=== PATIENT | female | born 1970 | race Caucasian/White ===

== ENCOUNTER 2017-08-23 14:46 | Emergency (ER) | payer MEDICAID ==
[~2017-08-23 14:46] MED LIST: ACET500T68 PO; AZIT-18 PO; CYCL10TA29 PO; FURO20TA19 PO; IBUP-1671 PO; KET10 PO; NITR-105 PO; PRED-1 PO
[2017-08-23] MEDS ORDERED: LISI5TAB25 PO (14:58)
--- NOTE | 2017-08-23 14:58 | ER Report ---
History and Physical Time Seen By MD: 14:58 Hx. of Stated Complaint: PT REPORTS SEVERE R SIDE BACK/ABDOMEN PAIN STARTING YESTERDAY MORNING, JABBING IN WAVES, LIGHTHEADEDNESS, ON PERIOD FOR 2 WEEKS HPI/ROS CHIEF COMPLAINT: Right flank and back pain HISTORY OF PRESENT ILLNESS: 47-year-old female patient presents to emergency room with complaint of right flank and back pain. Patient states this been going on since yesterday morning. She states since then she's taking some ibuprofen for this with no improvement. She states that she's been having her period for the past 2 months and has not noticing blood in her urine is alert but all the time. She states she is having pain that she rates a "20/10". She states that there is nothing seems to make the pain better. She denies having any nausea, vomiting or diarrhea. Patient states she is able to him drinking normally. She denies having any difficulties with bowel movement or urination. REVIEW OF SYSTEMS: Respiratory: No cough, no dyspnea. Cardiovascular: No chest pain, no palpitations. Gastrointestinal: No vomiting, no abdominal pain. Musculoskeletal: As noted above Allergies: Coded Allergies: Penicillins (Verified Allergy, Intermediate, rash, 04/13/17) cefaclor (Verified Allergy, Intermediate, rash, 04/13/17) sulfamethoxazole (Verified Allergy, Intermediate, rash, 04/13/17) trimethoprim (Verified Allergy, Intermediate, rash, 04/13/17) Home Meds Active Scripts Ketorolac Tromethamine (KETOROLAC TROMETHAMINE) 10 Mg Tab, 10 MG PO Q6H, #20 TAB Prov:HANS SEAMAN CREPE MACHINE OPERATOR 08/23/17 Reported Medications Gabapentin (GABAPENTIN) 300 Mg Capsule, 300 MG PO TID, CAPSULE 08/23/17 Meloxicam (MELOXICAM) 7.5 Mg Tablet, 7.5 MG PO QDAY 08/23/17 Lisinopril (LISINOPRIL) 5 Mg Tablet, 5 MG PO QDAY, TAB 08/23/17 Past Medical/Surgical History Patient has a past medical history of hypertension, hyperlipidemia, frequent UTI , diabetes, hypothyroidism, meth abuse, alcohol use, psychiatric problems. Patient has surgical history of cholecystectomy, ablation, tubal ligation, bilateral trigger finger, back surgery. Reviewed Nurses Notes: Yes Hx Substance Use Disorder: No Hx Alcohol Use: Yes (rare) Constitutional Vital Sign - Last 24 Hours 08/23/17 08/23/17 08/23/17 08/23/17 14:46 14:52 14:53 15:00 Temp 98.2 Pulse ??? 95 Resp 18 B/P (MAP) 143/95 (111) 143/95 132/69 (90) Pulse Ox 96 O2 Delivery Room Air 08/23/17 08/23/17 08/23/17 08/23/17 15:01 15:16 15:30 15:31 Pulse 88 85 84 B/P (MAP) 132/71 (91) Pulse Ox 99 96 94 08/23/17 08/23/17 08/23/17 08/23/17 15:46 16:00 16:01 16:16 Pulse ? 81 B/P (MAP) 148/78 (101) Pulse Ox 98 08/23/17 08/23/17 08/23/17 08/23/17 16:21 16:26 16:30 16:31 Pulse 95 83 92 B/P (MAP) 136/82 (100) Pulse Ox 99 95 95 Intake and Output 08/23/17 08/23/17 08/24/17 15:00 23:00 07:00 Intake Total 1000 ml Output Total 25 ml Balance 975 ml Physical Exam General Appearance: The patient is alert, has no immediate need for airway protection and no current signs of toxicity. ENT: Tympanic membranes are pearly-walker, auditory canals are patent, mixed mucous membranes are moist. Respiratory: Chest is non tender, lungs are clear to auscultation. Cardiac: regular rate and rhythm Gastrointestinal: Abdomen is soft and non tender, no masses, bowel sounds normal. Patient had right-sided CVA tenderness. Musculoskeletal: Neck: Neck is supple and non tender. Extremities have full range of motion and are non tender. Skin: No rashes or lesions. DIFFERENTIAL DIAGNOSIS: After history and physical exam differential diagnosis was considered for flank pain including but not limited to musculoskeletal causes, kidney stone, pyelonephritis, shingles, and intra-abdominal causes such as diverticulitis and appendicitis. Medical Decision Making Data Points Result Diagram: 08/23/17 1512 08/23/17 1512 Laboratory Hematology Test 08/23/17 15:12 08/23/17 15:28 Red Blood Count 4.76 M/uL (4.17-5.56) Mean Corpuscular Volume 89.6 fL (80.0-96.0) Mean Corpuscular Hemoglobin 32.1 pg (26.0-33.0) Mean Corpuscular Hemoglobin Concent 35.8 g/dL (32.0-36.0) Red Cell Distribution Width 13.5 % (11.5-14.5) Mean Platelet Volume 8.7 fL (7.2-11.1) Neutrophils (%) (Auto) 54.3 % (39.4-72.5) Lymphocytes (%) (Auto) 33.8 % (17.6-49.6) Monocytes (%) (Auto) 8.5 % (4.1-12.4) Eosinophils (%) (Auto) 2.7 % (0.4-6.7) Basophils (%) (Auto) 0.7 % (0.3-1.4) Nucleated RBC Relative Count (auto) 0.0 /100WBC Neutrophils # (Auto) 3.8 K/uL (2.0-7.4) Lymphocytes # (Auto) 2.4 K/uL (1.3-3.6) Monocytes # (Auto) 0.6 K/uL (0.3-1.0) Eosinophils # (Auto) 0.2 K/uL (0.0-0.5) Basophils # (Auto) 0.0 K/uL (0.0-0.1) Nucleated RBC Absolute Count (auto) 0.00 K/uL Erythrocyte Sedimentation Rate 15 mm/HOUR (0-20) Sodium Level 135 mmol/L (137-145) Potassium Level 3.9 mmol/L (3.5-5.0) Chloride Level 99 mmol/L (98-107) Carbon Dioxide Level 24 mmol/L (22-31) Blood Urea Nitrogen 12 mg/dl (7-18) Creatinine 0.90 mg/dl (0.52-1.04) Glomerular Filtration Rate Calc > 60.0 Random Glucose 125 mg/dl (75-110) Calcium Level 9.2 mg/dl (8.4-10.2) Total Bilirubin 0.9 mg/dl (0.2-1.3) Aspartate Amino Transf (AST/SGOT) 20 U/L (0-35) Alanine Aminotransferase (ALT/SGPT) 30 U/L (0-56) Alkaline Phosphatase 88 U/L (0-126) C-Reactive Protein 0.9 mg/dl (<1.0) Total Protein 7.3 gm/dl (6.3-8.2) Albumin 3.8 g/dl (3.5-5.0) Amylase Level 67 U/L (0-110) Lipase 102 U/L (23-300) Urine Color Yellow Urine Clarity Clear Urine pH 5.0 pH (4.8-9.5) Urine Specific [place] 1.017 Urine Protein Negative mg/dL (NEGATIVE) Urine Glucose (UA) Negative mg/dL (NEGATIVE) Urine Ketones Negative mg/dL (NEGATIVE) Urine Blood Negative (NEGATIVE) Urine Nitrite Negative (NEGATIVE) Urine Bilirubin Negative (NEGATIVE) Urine Urobilinogen 0.2 mg/dL (0.2-1.9) Urine Leukocyte Esterase Negative (NEGATIVE) Urine RBC None /HPF (0-2/HPF) Urine WBC 1 /HPF (0-5/HPF) Urine Squamous Epithelial Cells Many /LPF (NONE-FEW) Urine Bacteria Negative /HPF (NONE-FEW) Urine Mucus Few /HPF (NONE-FEW) Chemistry Test 08/23/17 15:12 08/23/17 15:28 White Blood Count 7.0 k/uL (4.5-11.0) Red Blood Count 4.76 M/uL (4.17-5.56) Hemoglobin 15.3 g/dL (12.0-16.0) Hematocrit 42.7 % (34.0-47.0) Mean Corpuscular Volume 89.6 fL (80.0-96.0) Mean Corpuscular Hemoglobin 32.1 pg (26.0-33.0) Mean Corpuscular Hemoglobin Concent 35.8 g/dL (32.0-36.0) Red Cell Distribution Width 13.5 % (11.5-14.5) Platelet Count 258 K/uL (150-450) Mean Platelet Volume 8.7 fL (7.2-11.1) Neutrophils (%) (Auto) 54.3 % (39.4-72.5) Lymphocytes (%) (Auto) 33.8 % (17.6-49.6) Monocytes (%) (Auto) 8.5 % (4.1-12.4) Eosinophils (%) (Auto) 2.7 % (0.4-6.7) Basophils (%) (Auto) 0.7 % (0.3-1.4) Nucleated RBC Relative Count (auto) 0.0 /100WBC Neutrophils # (Auto) 3.8 K/uL (2.0-7.4) Lymphocytes # (Auto) 2.4 K/uL (1.3-3.6) Monocytes # (Auto) 0.6 K/uL (0.3-1.0) Eosinophils # (Auto) 0.2 K/uL (0.0-0.5) Basophils # (Auto) 0.0 K/uL (0.0-0.1) Nucleated RBC Absolute Count (auto) 0.00 K/uL Erythrocyte Sedimentation Rate 15 mm/HOUR (0-20) Glomerular Filtration Rate Calc > 60.0 Calcium Level 9.2 mg/dl (8.4-10.2) Total Bilirubin 0.9 mg/dl (0.2-1.3) Aspartate Amino Transf (AST/SGOT) 20 U/L (0-35) Alanine Aminotransferase (ALT/SGPT) 30 U/L (0-56) Alkaline Phosphatase 88 U/L (0-126) C-Reactive Protein 0.9 mg/dl (<1.0) Total Protein 7.3 gm/dl (6.3-8.2) Albumin 3.8 g/dl (3.5-5.0) Amylase Level 67 U/L (0-110) Lipase 102 U/L (23-300) Urine Color Yellow Urine Clarity Clear Urine pH 5.0 pH (4.8-9.5) Urine Specific [place] 1.017 Urine Protein Negative mg/dL (NEGATIVE) Urine Glucose (UA) Negative mg/dL (NEGATIVE) Urine Ketones Negative mg/dL (NEGATIVE) Urine Blood Negative (NEGATIVE) Urine Nitrite Negative (NEGATIVE) Urine Bilirubin Negative (NEGATIVE) Urine Urobilinogen 0.2 mg/dL (0.2-1.9) Urine Leukocyte Esterase Negative (NEGATIVE) Urine RBC None /HPF (0-2/HPF) Urine WBC 1 /HPF (0-5/HPF) Urine Squamous Epithelial Cells Many /LPF (NONE-FEW) Urine Bacteria Negative /HPF (NONE-FEW) Urine Mucus Few /HPF (NONE-FEW) Urinalysis Test 08/23/17 15:28 Urine Color Yellow Urine Clarity Clear Urine pH 5.0 pH (4.8-9.5) Urine Specific [place] 1.017 Urine Protein Negative mg/dL (NEGATIVE) Urine Glucose (UA) Negative mg/dL (NEGATIVE) Urine Ketones Negative mg/dL (NEGATIVE) Urine Blood Negative (NEGATIVE) Urine Nitrite Negative (NEGATIVE) Urine Bilirubin Negative (NEGATIVE) Urine Urobilinogen 0.2 mg/dL (0.2-1.9) Urine Leukocyte Esterase Negative (NEGATIVE) Urine RBC None /HPF (0-2/HPF) Urine WBC 1 /HPF (0-5/HPF) Urine Squamous Epithelial Cells Many /LPF (NONE-FEW) Urine Bacteria Negative /HPF (NONE-FEW) Urine Mucus Few /HPF (NONE-FEW) EKG/Imaging Imaging CT abdomen and pelvis with IV contrast Indication: Right flank pain. Comparison: None available. . Technique: Axial CT images were obtained through the abdomen and pelvis during injection of nonionic iodinated intravenous contrast. Reformatted coronal and sagittal images were also obtained. One of the following dose optimization techniques was utilized in the performance of this exam: Automated exposure control; adjustment of the mA and/ or kV according to the patient's size; or use of an iterative reconstruction technique. Specific details can be referenced in the facility's radiology CT exam operational policy. Contrast: 100 ml of Isovue-370 IV contrast. Findings: Lower lung sinha: Limited views lower lung field are unremarkable. Liver: No focal parenchymal abnormality of the liver. Biliary: Status post cholecystectomy. Biliary system is unremarkable postcholecystectomy. Pancreas: Normal appearance. Spleen: Normal appearance. Adrenal glands: Unremarkable. Kidneys / retroperitoneum: No evidence of nephrolithiasis or hydronephrosis. No focal normality. Bowel / peritoneum / mesenteries: There are a few diverticula seen along the descending sigmoid colon without pericolonic inflammation. Colon shows no other focal abnormality. The appendix is not definitely visualized. No secondary signs of appendicitis. Small bowel shows no focal normality or obstruction. Stomach is grossly normal. No free air, free fluid, fluid collections or areas of inflammation. Small umbilical hernia containing fat. Lymph node assessment: No pathologic adenopathy identified. Pelvic structures: Appear unremarkable. Vessels: Mild atherosclerotic calcifications seen throughout a nonaneurysmal abdominal aorta and branches. Musculoskeletal / Body wall: No acute or aggressive osseous abnormality. Mild degenerative changes spine. IMPRESSION: 1. No acute intra-abdominal abnormality Report Dictated By: Dyllan Tyler at 08/23/2017 4:11 PM Report E-Signed By: Dyllan Tyler at 08/23/2017 4:18 PM ED Course/Re-evaluation ED Course Patient was admitted to exam room, history and physical were obtained. Different diagnoses were considered. On examination patient had tenderness to the right flank, CVA tenderness. A CBC, CMP, urinalysis, ESR, CRP were done. Lab results were unremarkable. CT scan of abdomen and pelvis was done looking for possible kidney stones or pyelonephritis. The imaging results were negative as well. Patient did receive 50 mg of IV Toradol. I went in to discuss the results of the labs as well as the imaging studies patient was resting peacefully. I did inform her that the imaging as well as the lab results were negative. I believe that we are looking at a musculoskeletal injury. We will go ahead and give her a prescription for Toradol. She is to follow-up with her primary care provider in a week. Patient verbalized understanding and agreement with plan. Decision to Disposition Date: Aug 23, 2017 Decision to Disposition Time: 16:28 Depart Departure Latest Vital Signs Vital Signs Date Time Temp Pulse Resp B/P (MAP) Pulse Ox O2 Delivery O2 Flow Rate FiO2 08/23/17 16:31 92 95 08/23/17 16:30 136/82 (100) 08/23/17 14:53 98.2 18 Room Air Impression: Primary Impression: Back pain Condition: Improved Disposition: HOME OR SELF-CARE New Scripts Ketorolac Tromethamine (KETOROLAC TROMETHAMINE) 10 Mg Tab 10 MG PO Q6H, #20 TAB Prov: HANS SEAMAN 08/23/17 Patient Instructions: Back Pain (ED) Additional Instructions: Limit activity by pain. Ice the area that is sore. Take Tylenol in addition to the pain medication. No Aleve, Ibuprofen or Advil while taking the pain medication. Follow up with your primary care provider in the next week. Return to the ER if condition worsens. Problem Qualifiers Primary Impression: Back pain Back pain location: low back pain Chronicity: acute Back pain laterality: right Sciatica presence: without sciatica Qualified Codes: M54.5 - Low back pain HANS SEAMAN Aug 23, 2017 14:58
[2017-08-23] MEDS ORDERED: MELO-205 PO (14:59)
[2017-08-23] MEDS ORDERED: GABA-549 PO (15:00)
[2017-08-23] MEDS ORDERED: NS(*) 0.9% 1000 ML BAG 1,000 ML IV ONE (15:04)
[2017-08-23] MEDS ORDERED: KETOROLAC 15 MG/ML VIAL IVP ONE (15:05)
[2017-08-23] MEDS ORDERED: IOPAMIDOL 76% 100 ML INFUS BTL 100 ML ONE (15:25)
[2017-08-23] MEDS ORDERED: NS 0.9% 150 ML BAG 150 ML ONE (15:25)
[2017-08-23 15:28] LABS: PLATELET COUNT, AUTOMATED 258 K/uL (150-450)
--- NOTE | 2017-08-23 16:23 | RADIOLOGY IMAGING REPORT ---
FACILITY: [facility] [place] PATIENT NAME: Rochelle Arriaga : 1970 MR: [id number] V: [id number] EXAM DATE: ORDERING PHYSICIAN: HANS SEAMAN TECHNOLOGIST: Location: [facility] [place] Patient: Rochelle Arriaga : 1970 Visit/Account:[id number] Date of Sevice: 08/23/2017 CT abdomen and pelvis with IV contrast Indication: Right flank pain. Comparison: None available. . Technique: Axial CT images were obtained through the abdomen and pelvis during injection of nonioni c iodinated intravenous contrast. Reformatted coronal and sagittal images were also obtained. One of the following dose optimization techniques was utilized in the performance of this exam: Autom ated exposure control; adjustment of the mA and/or kV according to the patient's size; or use of an i terative reconstruction technique. Specific details can be referenced in the facility's radiology C T exam operational policy. Contrast: 100 ml of Isovue-370 IV contrast. Findings: Lower lung sinha: Limited views lower lung field are unremarkable. Liver: No focal parenchymal abnormality of the liver. Biliary: Status post cholecystectomy. Biliary system is unremarkable postcholecystectomy. Pancreas: Normal appearance. Spleen: Normal appearance. Adrenal glands: Unremarkable. Kidneys / retroperitoneum: No evidence of nephrolithiasis or hydronephrosis. No focal normality. Bowel / peritoneum / mesenteries: There are a few diverticula seen along the descending sigmoid colon without pericolonic inflammation. Colon shows no other focal abnormality. The appendix is not defini tely visualized. No secondary signs of appendicitis. Small bowel shows no focal normality or obstruct ion. Stomach is grossly normal. No free air, free fluid, fluid collections or areas of inflammation. Small umbilical hernia containin g fat. Lymph node assessment: No pathologic adenopathy identified. Pelvic structures: Appear unremarkable. Vessels: Mild atherosclerotic calcifications seen throughout a nonaneurysmal abdominal aorta and bran ches. Musculoskeletal / Body wall: No acute or aggressive osseous abnormality. Mild degenerative changes sp ine. IMPRESSION: 1. No acute intra-abdominal abnormality Report Dictated By: Dyllan Tyler at 08/23/2017 4:11 PM Report E-Signed By: Dyllan Tyler at 08/23/2017 4:18 PM WSN:[id number]
[2017-08-23] MEDS ORDERED: KET10 PO (16:27)
[2017-08-23 16:30] VITALS: BP 136/82
== END 2017-08-23 16:48 | disposition home or self-care (01) ==
LOC: ER 14:57
DX: M54.5 Low back pain (principal)
CPT/HCPCS: 74177; 81001; 82150; 83690; 85025; 85651; 86140; 96361; 96374; 99284; A4353; J1885; J7030; Q9967; 82040; 82247; 82310; 82374; 82435; 82565; 82947; 84075; 84132; 84155; 84295; 84450; 84460; 84520

== ENCOUNTER → 2018-01-08 | Outpatient (REF) ==
[~2018-01-08] MED LIST changes: +GABA-549 PO; +HYDR-4309 PO; +LISI5TAB25 PO; +MELO-205 PO; +PRED20TA6 PO
--- NOTE | 2018-01-08 13:15 | RADIOLOGY IMAGING REPORT ---
FACILITY: [facility] [place] PATIENT NAME: Rochelle Arriaga : 1970 MR: [id number] V: [id number] EXAM DATE: ORDERING PHYSICIAN: ROSALINDA CHAUDHARY TECHNOLOGIST: Location: [facility] Patient: Rochelle Arriaga : 1970 Visit/Account:[id number] Date of Sevice: 01/08/2018 Exam type: VENOUS DOPP LOW RIGHT EXTREMIT History: Right lower extremity pain Comparison: None. Findings: Right lower extremity veins were imaged including the right common femoral vein superficial femoral v ein popliteal vein posterior tibial vein peroneal vein greater saphenous vein revealing no evidence i ntraluminal thrombi the veins were compressible and demonstrated augmentation IMPRESSION: 1. No sonographic evidence DVT involving the right lower extremity veins Report Dictated By: Gina Crawford MD at 01/08/2018 1:09 PM Report E-Signed By: Gina Crawford MD at 01/08/2018 1:11 PM WSN:[email or web address]
== END ==
LOC: US 11:50
PROVIDERS: ATTEND Registered Nurse Psychiatric/Mental Health
DX: M79.604 Pain in right leg (principal)

== ENCOUNTER 2018-02-20 04:37 | Emergency (ER) | payer SELFPAY ==
[~2018-02-20 04:37] MED LIST changes: -LAMO25TA64 PO
--- NOTE | 2018-02-20 04:49 | ER Report ---
History and Physical Time Seen By MD: 04:49 Hx. of Stated Complaint: 20/10 right pain that has been going on for 3 days; patient states that she "has been out of it for 3 days" HPI/ROS CHIEF COMPLAINT: Right hip pain HISTORY OF PRESENT ILLNESS: This is a 47-year-old female. She has severe right hip/sciatica pain. She states for the last 3 days she will take a Tylenol and then go to sleep for several hours and get up and take another Tylenol. Today she couldn't get out of bed and has severe pain so called the ambulance. She says her pain is 20 on a 1-10 scale. She has a history of degenerative disc disease and follows up at the [facility]. Supposedly she is getting an MRI next month. She has a history of drug abuse as well. She does have some prednisone at home but has not used this. Also has a pill bottle for hydrocodone and has not used any of this as well. Allergies: Coded Allergies: Penicillins (Verified Allergy, Intermediate, rash, 02/20/18) cefaclor (Verified Allergy, Intermediate, rash, 02/20/18) sulfamethoxazole (Verified Allergy, Intermediate, rash, 02/20/18) trimethoprim (Verified Allergy, Intermediate, rash, 02/20/18) Home Meds Active Scripts Ketorolac Tromethamine (KETOROLAC TROMETHAMINE) 10 Mg Tab, 10 MG PO Q6H PRN for PAIN, #12 TAB 0 Refills Prov:NORMA FOREMAN MD 02/20/18 Cyclobenzaprine Hcl (CYCLOBENZAPRINE HCL) 10 Mg Tablet, 10 MG PO Q8H PRN for MUSCLE SPASMS, #20 TAB 0 Refills Prov:NORMA FOREMAN MD 02/20/18 Hydrocodone Bit/Acetaminophen (NORCO 5-325 TABLET) 1 Each Tablet, 1 EACH PO Q4H PRN for PAIN, #10 TAB Prov:CODI JOHNSON DO 01/04/18 Prednisone (PREDNISONE) 20 Mg Tablet, 20 MG PO QDAY for sciatic inflammation, #12 2. 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 She is hollering that she can't move her leg while I am watching her move it. She refuses to lay on her back because he says it hurts too much. Neuro: Normal sensation throughout the legs. Negative straight leg raise, she has pain no matter what position she is in does not change she says. Musculoskeletal: Appears to have normal motor function although with pain. No deformities or swelling noted. Skin: No rashes. No warmth or redness. Cardiovascular: Normal pulses in the foot and normal cap refill. Medical Decision Making Data Points Result Diagram: 02/20/18 0449 02/20/18 0449 Laboratory Hematology Test 02/20/18 04:49 02/20/18 05:11 Red Blood Count 4.91 M/uL (4.17-5.56) Mean Corpuscular Volume 90.9 fL (80.0-96.0) Mean Corpuscular Hemoglobin 31.8 pg (26.0-33.0) Mean Corpuscular Hemoglobin Concent 35.0 g/dL (32.0-36.0) Red Cell Distribution Width 13.5 % (11.5-14.5) Mean Platelet Volume 8.9 fL (7.2-11.1) Neutrophils (%) (Auto) 52.6 % (39.4-72.5) Lymphocytes (%) (Auto) 35.2 % (17.6-49.6) Monocytes (%) (Auto) 8.2 % (4.1-12.4) Eosinophils (%) (Auto) 3.0 % (0.4-6.7) Basophils (%) (Auto) 1.0 % (0.3-1.4) Nucleated RBC Relative Count (auto) 0.1 /100WBC Neutrophils # (Auto) 3.2 K/uL (2.0-7.4) Lymphocytes # (Auto) 2.2 K/uL (1.3-3.6) Monocytes # (Auto) 0.5 K/uL (0.3-1.0) Eosinophils # (Auto) 0.2 K/uL (0.0-0.5) Basophils # (Auto) 0.1 K/uL (0.0-0.1) Nucleated RBC Absolute Count (auto) 0.01 K/uL Erythrocyte Sedimentation Rate 16 mm/HOUR (0-20) Sodium Level 136 mmol/L (137-145) Potassium Level 4.4 mmol/L (3.5-5.0) Chloride Level 103 mmol/L (98-107) Carbon Dioxide Level 22 mmol/L (22-31) Blood Urea Nitrogen 20 mg/dl (7-18) Creatinine 0.90 mg/dl (0.52-1.04) Glomerular Filtration Rate Calc > 60.0 Random Glucose 139 mg/dl (75-110) Calcium Level 9.2 mg/dl (8.4-10.2) Total Bilirubin 1.4 mg/dl (0.2-1.3) Aspartate Amino Transf (AST/SGOT) 26 U/L (0-35) Alanine Aminotransferase (ALT/SGPT) 35 U/L (0-56) Alkaline Phosphatase 76 U/L (0-126) C-Reactive Protein 0.7 mg/dl (<1.0) Total Protein 7.3 g/dl (6.3-8.2) Albumin 4.0 g/dl (3.5-5.0) Urine Color Yellow Urine Clarity Slightly-cloudy Urine pH 5.0 pH (4.8-9.5) Urine Specific [place] 1.023 Urine Protein 30 mg/dL (NEGATIVE) Urine Glucose (UA) Negative mg/dL (NEGATIVE) Urine Ketones Negative mg/dL (NEGATIVE) Urine Blood Large (NEGATIVE) Urine Nitrite Negative (NEGATIVE) Urine Bilirubin Negative (NEGATIVE) Urine Urobilinogen Negative mg/dL (0.2-1.9) Urine Leukocyte Esterase Trace (NEGATIVE) Urine RBC 160 /HPF (0-2/HPF) Urine WBC 11 /HPF (0-5/HPF) Urine Squamous Epithelial Cells Many /LPF (NONE-FEW) Urine Bacteria Negative /HPF (NONE-FEW) Urine Mucus Few /HPF (NONE-FEW) Urine Opiates Screen Negative Urine Barbiturates Screen Negative Ur Tricyclic Antidepressants Screen Negative Urine Phencyclidine Screen Negative Urine Amphetamines Screen Positive Urine Benzodiazepines Screen Negative Urine Cocaine Screen Negative Urine Cannabinoids Screen Negative Chemistry Test 02/20/18 04:49 02/20/18 05:11 White Blood Count 6.2 k/uL (4.5-11.0) Red Blood Count 4.91 M/uL (4.17-5.56) Hemoglobin 15.6 g/dL (12.0-16.0) Hematocrit 44.6 % (34.0-47.0) Mean Corpuscular Volume 90.9 fL (80.0-96.0) Mean Corpuscular Hemoglobin 31.8 pg (26.0-33.0) Mean Corpuscular Hemoglobin Concent 35.0 g/dL (32.0-36.0) Red Cell Distribution Width 13.5 % (11.5-14.5) Platelet Count 283 K/uL (150-450) Mean Platelet Volume 8.9 fL (7.2-11.1) Neutrophils (%) (Auto) 52.6 % (39.4-72.5) Lymphocytes (%) (Auto) 35.2 % (17.6-49.6) Monocytes (%) (Auto) 8.2 % (4.1-12.4) Eosinophils (%) (Auto) 3.0 % (0.4-6.7) Basophils (%) (Auto) 1.0 % (0.3-1.4) Nucleated RBC Relative Count (auto) 0.1 /100WBC Neutrophils # (Auto) 3.2 K/uL (2.0-7.4) Lymphocytes # (Auto) 2.2 K/uL (1.3-3.6) Monocytes # (Auto) 0.5 K/uL (0.3-1.0) Eosinophils # (Auto) 0.2 K/uL (0.0-0.5) Basophils # (Auto) 0.1 K/uL (0.0-0.1) Nucleated RBC Absolute Count (auto) 0.01 K/uL Erythrocyte Sedimentation Rate 16 mm/HOUR (0-20) Glomerular Filtration Rate Calc > 60.0 Calcium Level 9.2 mg/dl (8.4-10.2) Total Bilirubin 1.4 mg/dl (0.2-1.3) Aspartate Amino Transf (AST/SGOT) 26 U/L (0-35) Alanine Aminotransferase (ALT/SGPT) 35 U/L (0-56) Alkaline Phosphatase 76 U/L (0-126) C-Reactive Protein 0.7 mg/dl (<1.0) Total Protein 7.3 g/dl (6.3-8.2) Albumin 4.0 g/dl (3.5-5.0) Urine Color Yellow Urine Clarity Slightly-cloudy Urine pH 5.0 pH (4.8-9.5) Urine Specific [place] 1.023 Urine Protein 30 mg/dL (NEGATIVE) Urine Glucose (UA) Negative mg/dL (NEGATIVE) Urine Ketones Negative mg/dL (NEGATIVE) Urine Blood Large (NEGATIVE) Urine Nitrite Negative (NEGATIVE) Urine Bilirubin Negative (NEGATIVE) Urine Urobilinogen Negative mg/dL (0.2-1.9) Urine Leukocyte Esterase Trace (NEGATIVE) Urine RBC 160 /HPF (0-2/HPF) Urine WBC 11 /HPF (0-5/HPF) Urine Squamous Epithelial Cells Many /LPF (NONE-FEW) Urine Bacteria Negative /HPF (NONE-FEW) Urine Mucus Few /HPF (NONE-FEW) Urine Opiates Screen Negative Urine Barbiturates Screen Negative Ur Tricyclic Antidepressants Screen Negative Urine Phencyclidine Screen Negative Urine Amphetamines Screen Positive Urine Benzodiazepines Screen Negative Urine Cocaine Screen Negative Urine Cannabinoids Screen Negative Toxicology Test 02/20/18 05:11 Urine Opiates Screen Negative Urine Barbiturates Screen Negative Ur Tricyclic Antidepressants Screen Negative Urine Phencyclidine Screen Negative Urine Amphetamines Screen Positive Urine Benzodiazepines Screen Negative Urine Cocaine Screen Negative Urine Cannabinoids Screen Negative Urinalysis Test 02/20/18 05:11 Urine Color Yellow Urine Clarity Slightly-cloudy Urine pH 5.0 pH (4.8-9.5) Urine Specific [place] 1.023 Urine Protein 30 mg/dL (NEGATIVE) Urine Glucose (UA) Negative mg/dL (NEGATIVE) Urine Ketones Negative mg/dL (NEGATIVE) Urine Blood Large (NEGATIVE) Urine Nitrite Negative (NEGATIVE) Urine Bilirubin Negative (NEGATIVE) Urine Urobilinogen Negative mg/dL (0.2-1.9) Urine Leukocyte Esterase Trace (NEGATIVE) Urine RBC 160 /HPF (0-2/HPF) Urine WBC 11 /HPF (0-5/HPF) Urine Squamous Epithelial Cells Many /LPF (NONE-FEW) Urine Bacteria Negative /HPF (NONE-FEW) Urine Mucus Few /HPF (NONE-FEW) EKG/Imaging Imaging LUMBAR SPINE: Indication: Low back pain. Technique: Frontal and lateral views were obtained. Comparison: 04/03/2017 Findings: There is no evidence of fracture, subluxation, or compression deformity. There is stable mild degenerative disc space narrowing and marginal osteophyte formation. There is normal mineralization. The paraspinal soft tissues appear unchanged. IMPRESSION: No acute deformity or significant change. Report Dictated By: Bryon Ordaz MD at 02/20/2018 5:53 AM HIP: Indication: Pain. Technique: Two views were obtained. Comparison: None. Findings: There is no evidence of fracture, dislocation, or other acute deformity. No joint space narrowing, erosion, or osteophyte formation is noted. There is uniform mineralization of the skeletal structures. There is no evidence of soft tissue deformity or calcification. IMPRESSION: Negative right hip. Report Dictated By: Bryon Ordaz MD at 02/20/2018 6:00 AM ED Course/Re-evaluation ED Course Laboratory studies essentially unremarkable with normal sedimentation rate and CRP. She did have a positive urine drug screen for methamphetamines. I did talk to her about this. I think that part of her problem is that she is abusing methamphetamine and then laying around causing worsening of her sciatica pain. Talked about stopping the drug use. I gave her Norflex and Toradol IV here in the ER and she will continue these and oral form outpatient as well. She will follow up with [facility] as planned. Decision to Disposition Date: Feb 20, 2018 Decision to Disposition Time: 05:59 Depart Departure Latest Vital Signs Vital Signs Date Time Temp Pulse Resp B/P (MAP) Pulse Ox O2 Delivery O2 Flow Rate FiO2 02/20/18 04:39 98.3 78 17 137/73 94 Room Air Impression: Primary Impression: Right sided sciatica Condition: Improved Disposition: HOME OR SELF-CARE New Scripts Ketorolac Tromethamine (KETOROLAC TROMETHAMINE) 10 Mg Tab 10 MG PO Q6H PRN for PAIN, #12 TAB 0 Refills Prov: NORMA FOREMAN MD 02/20/18 Cyclobenzaprine Hcl (CYCLOBENZAPRINE HCL) 10 Mg Tablet 10 MG PO Q8H PRN for MUSCLE SPASMS, #20 TAB 0 Refills Prov: NORMA FOREMAN MD 02/20/18 Patient Instructions: Sciatica (ED) Additional Instructions: You need to start moving, including stretching and walking. Use a hot rice pack to apply heat. Follow-up with the [facility]. Stop using methamphetamines. Take Flexeril 10mg, one every 8 hours as needed for spasm and pain. Take Toradol 10mg every 6 hours for the next 3 days. Take this with food. Drink extra water. After the 3 days of Toradol, you can switch to Ibuprofen. It is important that you do not take the medicines and then just lay around and sleep. This will not get better if you are not getting up and moving around. It will be painful at first, but should improve as you are moving more. NORMA FOREMAN MD Feb 20, 2018 04:49
[2018-02-20] MEDS ORDERED: KETOROLAC 30 MG/ML VIAL IVP ONE (05:05)
[2018-02-20] MEDS ORDERED: ORPHENADRINE 60MG/2ML INJ IVP ONE (05:05)
[2018-02-20 05:32] LABS: PLATELET COUNT, AUTOMATED 283 K/uL (150-450)
[2018-02-20 05:36] VITALS: BP 114/60
[2018-02-20] MEDS ORDERED: KET10 PO (06:02)
[2018-02-20] MEDS ORDERED: CYCL10TA29 PO (06:02)
--- NOTE | 2018-02-20 06:04 | RADIOLOGY IMAGING REPORT ---
FACILITY: [facility] [place] PATIENT NAME: Rochelle Arriaag : 1970 MR: [id number] V: [id number] EXAM DATE: ORDERING PHYSICIAN: NORMA FOREMAN TECHNOLOGIST: Location: [facility] Patient: Rochelle Arriaga : 1970 Visit/Account:[id number] Date of Sevice: 02/20/2018 LUMBAR SPINE: Indication: Low back pain. Technique: Frontal and lateral views were obtained. Comparison: 04/03/2017 Findings: There is no evidence of fracture, subluxation, or compression deformity. There is stable mi ld degenerative disc space narrowing and marginal osteophyte formation. There is normal mineralizatio n. The paraspinal soft tissues appear unchanged. IMPRESSION: No acute deformity or significant change. Report Dictated By: Bryon Ordaz MD at 02/20/2018 5:53 AM Report E-Signed By: Bryon Ordaz MD at 02/20/2018 6:00 AM WSN:[id number]
[2018-02-20] MEDS ORDERED: CYCLOBENZAPRINE HCL 10 MG TH PO ONE (06:05)
[2018-02-20] MEDS ORDERED: KETOROLAC TROM 10 MG TAB TH PO ONE (06:05)
--- NOTE | 2018-02-20 06:05 | RADIOLOGY IMAGING REPORT ---
FACILITY: [facility] PATIENT NAME: Rochelle Arriaga : 1970 MR: [id number] V: [id number] EXAM DATE: ORDERING PHYSICIAN: NORMA FOREMAN TECHNOLOGIST: Location: [facility] Patient: Rochelle Arriaga : 1970 Visit/Account:[id number] Date of Sevice: 02/20/2018 HIP: Indication: Pain. Technique: Two views were obtained. Comparison: None. Findings: There is no evidence of fracture, dislocation, or other acute deformity. No joint space galdino rowing, erosion, or osteophyte formation is noted. There is uniform mineralization of the skeletal st ructures. There is no evidence of soft tissue deformity or calcification. IMPRESSION: Negative right hip. Report Dictated By: Bryon Ordaz MD at 02/20/2018 6:00 AM Report E-Signed By: Bryon Ordaz MD at 02/20/2018 6:01 AM WSN:[id number]
[2018-02-20] MEDS ORDERED: LAMO25TA64 PO (18:17)
== END 2018-02-20 07:32 | disposition home or self-care (01) ==
LOC: ER 04:46
DX: M54.31 Sciatica, right side (principal); F15.90 Other stimulant use, unspecified, uncomplicated
CPT/HCPCS: 72100; 73502; 80305; 81001; 85025; 85651; 86140; 87088; 96374; 96375; 99284; A4353; J1885; J2360; 82040; 82247; 82310; 82374; 82435; 82565; 82947; 84075; 84132; 84155; 84295; 84450; 84460; 84520

== ENCOUNTER 2018-02-20 18:07 | Emergency (ER) | payer SELFPAY ==
--- NOTE | 2018-02-20 18:12 | ER Report ---
History and Physical Time Seen By : 18:12 HPI/ROS CHIEF COMPLAINT: Right sciatic pain HISTORY OF PRESENT ILLNESS: 47-year-old female returns complaining of right sciatic nerve pain. She was seen 2 months ago by myself. She was given a prednisone taper and a few hydrocodone for pain relief as well as muscle relaxants. She was advised to follow-up with primary care. She states she went to the [facility] and has an MRI scheduled next Friday. She was seen in the ER in the early a.m. hours this morning around 5 AM. She had a drug tox screen which positive for amphetamines suggesting substance abuse. Dr. santacruz discharged her with Flexeril and ketorolac for pain relief. Patient states she took the tree packs of medication and her pain has returned. She did not fill the prescriptions. Patient admitted during her last ER visit, that she had some hydrocodone left over at home. Patient notes no incontinence of stool or urine. She notes no fever or chills. Urinalysis was performed of the earlier ER visit, which is unremarkable for infection. REVIEW OF SYSTEMS: Respiratory: No cough, no dyspnea. Cardiovascular: No chest pain, no palpitations. Gastrointestinal: No vomiting, no abdominal pain. Musculoskeletal: As above Allergies: Coded Allergies: Penicillins (Verified Allergy, Intermediate, rash, 02/20/18) cefaclor (Verified Allergy, Intermediate, rash, 02/20/18) sulfamethoxazole (Verified Allergy, Intermediate, rash, 02/20/18) trimethoprim (Verified Allergy, Intermediate, rash, 02/20/18) Home Meds Active Scripts Ketorolac Tromethamine (KETOROLAC TROMETHAMINE) 10 Mg Tab, 10 MG PO Q6H PRN for PAIN, #12 TAB 0 Refills Prov:NORMA FOREMAN MD 02/20/18 Cyclobenzaprine Hcl (CYCLOBENZAPRINE HCL) 10 Mg Tablet, 10 MG PO Q8H PRN for MUSCLE SPASMS, #20 TAB 0 Refills Prov:NORMA FOREMAN MD 02/20/18 Hydrocodone Bit/Acetaminophen (NORCO 5-325 TABLET) 1 Each Tablet, 1 EACH PO Q4H PRN for PAIN, #10 TAB Prov:CODI JOHNSON DO 01/04/18 Prednisone (PREDNISONE) 20 Mg Tablet, 20 MG PO QDAY for sciatic inflammation, #12 2. 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 Vital signs stable, afebrile, mild distress Eyes: Pupils equal and round no injection. Respiratory: Chest is non tender, lungs are clear to auscultation. Cardiac: regular rate and rhythm Gastrointestinal: Abdomen is soft and non tender, no masses, bowel sounds normal. Musculoskeletal: Neck: Neck is supple and non tender. Back: There is tenderness over the course of the sciatic nerve. There is negative straight leg raise bilaterally. Lower extremities are neurovascularly intact. Extremities have full range of motion and are non tender. Skin: No rashes or lesions. DIFFERENTIAL DIAGNOSIS: After history and physical exam differential diagnosis was considered for back pain including but not limited to muscular pain, herniated disc, spine fracture, intra-abdominal causes , sciatica and urinary tract infection. Medical Decision Making ED Course/Re-evaluation ED Course Patient was admitted to an examination room. H&P was done. The differential diagnosis was considered. On clinical examination. Patient has extreme tenderness over her right sciatic nerve. She claims she has no improvement of h er pain. She was noted to be positive on her tox screen for amphetamines early this morning at 5 AM. She was discharged home on Flexeril and ketorolac. Patient returned turned stating her pain is unimproved with those medications. Since patient has a history of substance abuse, we're reluctant to provide any opiate pain relievers for her. Patient's offered the option of a sciatic nerve block with Marcaine. She agrees to proceed. With sterile technique. The most tender spot along the sciatic nerve was found. A #27-gauge 1-1/4 inch needle was inserted and approximately 10 mL of Marcaine 0.5% was infiltrated in a fan shaped distribution proximal to the site of pain where the nerve is most tender. She tolerated the procedure well. Patient is discharged home and advised to continue with the treatment plan as provided by Dr. Mijares. She is advised to follow-up with the [facility] as planned. Decision to Disposition Date: Feb 20, 2018 Decision to Disposition Time: 18:34 Depart Departure Latest Vital Signs Vital Signs Date Time Temp Pulse Resp B/P (MAP) Pulse Ox O2 Delivery O2 Flow Rate FiO2 02/20/18 19:11 84 18 140/83 (102) 94 Room Air 02/20/18 18:17 98.1 Impression: Primary Impression: Right sided sciatica Additional Impression: Back pain Condition: Stable Disposition: HOME OR SELF-CARE Patient Instructions: Sciatica (ED) Additional Instructions: Alternate ibuprofen and Tylenol to control your pain Apply heating pad to the affected area Follow-up with your primary care doctor for further evaluation next week Problem Qualifiers Additional Impression: Back pain Back pain location: low back pain Chronicity: chronic Back pain laterality: right Sciatica presence: with sciatica Sciatica laterality: sciatica of right side Qualified Codes: M54.41 - Lumbago with sciatica, right side; G89.29 - Other chronic pain CODI JOHNSON DO Feb 20, 2018 18:12
[2018-02-20] MEDS ORDERED: LAMO25TA64 PO (18:17)
[2018-02-20 19:11] VITALS: BP 140/83
== END 2018-02-20 19:13 | disposition home or self-care (01) ==
LOC: ER 18:12
DX: M54.31 Sciatica, right side (principal)
CPT/HCPCS: 99283

== ENCOUNTER → 2018-02-20 | Outpatient (CLI) | payer SELFPAY ==
[~2018-02-20] MED LIST changes: -HYDR-4309 PO; +HYDR-653 PO; +LAMO25TA64 PO
== END ==
LOC: AMB 04:08
PROVIDERS: ATTEND Nurse Practitioner
DX: M25.551 Pain in right hip (principal)
CPT/HCPCS: A0425; A0427

== ENCOUNTER → 2018-02-26 | Outpatient (REF) ==
[~2018-02-26] MED LIST changes: +GADOBENATE 529MG/1ML 15ML VIAL IVP ONE; +LAMO25TA64 PO
--- NOTE | 2018-02-26 10:57 | RADIOLOGY IMAGING REPORT ---
[place] [facility] [place] NAME: Rochelle Arriaga : 1970 MR: [id number] V: [id number] EXAM DATE: ORDERING PHYSICIAN: RENO ARIAS TECHNOLOGIST: Location: [facility] Patient: Rochelle Arriaga : 1970 Visit/Account:[id number] Date of Sevice: 02/26/2018 Lumbar spine Indication: Chronic low back pain. History of L5-S1 discectomy. Comparison: February 20, 2018. FINDINGS: 5 views of the lumbar spine were obtained. There are 5 lumbar type vertebral bodies. There is no acute osseous or acute alignment abnormality. Minimal to 3 mm anterolisthesis of L3 on L4 without definitive movement between flexion and extension views. No additional spondylolisthesis identified. The vertebral body heights appear well-maintained. Overall mild multilevel degenerative disc disease and mild/moderate facet arthropathy. Mild S-shaped sclerotic curvature of the thoracal lumbar spine.. Mild/moderate atherosclerosis within the abdominal aorta. IMPRESSION: 1. No acute osseous or acute alignment abnormality of the lumbar spine. 2. Grade 1 anterolisthesis of L3 on L4 without definitive movement between flexion and extension vie ws. 3. Mild/moderate degenerative changes within the lumbar spine. Report Dictated By: Rios Medina MD at 02/26/2018 10:49 AM Report E-Signed By: Rios Medina MD at 02/26/2018 10:53 AM WSN:[email or web address]
--- NOTE | 2018-02-26 13:43 | RADIOLOGY IMAGING REPORT ---
FACILITY: [facility] [place] PATIENT NAME: Rochelle Arriaga : 1970 MR: [id number] V: [id number] EXAM DATE: ORDERING PHYSICIAN: RENO ARIAS TECHNOLOGIST: Location: [facility] [place] Patient: Rochelle Arriaga : 1970 Visit/Account:[id number] Date of Sevice: 02/26/2018 EXAMINATION: MRI Lumbar spine without and with intravenous contrast HISTORY: Chronic low back pain. COMPARISON: Lumbar spine radiographs from same date. TECHNIQUE: Multi-planar, multi-sequence lumbar spine MRI was performed before and after IV contrast. CONTRAST: 15 mL of IV MultiHance FINDINGS: Alignment: Mild reverse S-shaped curvature of the thoracolumbar spine. Vertebral marrow signal: Mild discogenic fatty marrow changes at a few levels. Distal thoracic cord: Negative. Conus: negative, terminates at L1 Cauda equina: Negative. Paravertebral soft tissues: Negative. Visualized abdominal and pelvic structures: Negative. Enhancement pattern: Enhancing granulation tissue in the right epidural space at L5-S1. Disc Spaces: Lower thoracic spine: Mild degenerative changes. L1-2: Negative. L2-3: Circumferential disc bulge and facet hypertrophy. No significant spinal canal stenosis. Mild right and moderate left neural foraminal stenosis. L3-4: Circumferential disc bulge and facet hypertrophy. No significant spinal canal stenosis. Mild right and moderate left neural foraminal stenosis. L4-5: Circumferential disc bulge and facet hypertrophy. Moderate bilateral lateral recess stenosis. Mild central spinal canal stenosis. Mild to moderate bilateral neural foraminal stenosis. L5-S1: Right hemilaminectomy. Right lateral epidural granulation tissue surrounding the right S1 ner ve root. Small residual/recurrent disc protrusion in this region (series 9, image 7). Circumferenti al disc bulge and facet hypertrophy. Moderate left lateral recess stenosis. Moderate left and sever e right neural foraminal stenosis. IMPRESSION: 1. Multilevel degenerative disc disease and facet hypertrophy with mild reverse S-shaped thoracolumb ar curvature. 2. Right hemilaminectomy at L5-S1 with right lateral epidural granulation tissue surrounding the rig ht S1 nerve root. There is also a small residual/recurrent disc protrusion in the same region (serie s 9, image 7). Report Dictated By: Salvador Hernandez MD at 02/26/2018 1:29 PM Report E-Signed By: Salvador Hernandez MD at 02/26/2018 1:39 PM WSN:[id number]
== END ==
LOC: EDSTATUS 02:26 → MRI 02:27
PROVIDERS: ATTEND Orthopaedic Surgery Orthopaedic Surgery of the Spine
DX: M51.36 Other intervertebral disc degeneration, lumbar region (principal); M53.86 Other specified dorsopathies, lumbar region
CPT/HCPCS: 72120; 72158; A9577

== ENCOUNTER 2018-03-11 15:03 | Emergency (ER) | payer SELFPAY ==
[~2018-03-11 15:03] MED LIST changes: -GADOBENATE 529MG/1ML 15ML VIAL IVP ONE
[2018-03-11 15:13] VITALS: BP 154/84
--- NOTE | 2018-03-11 15:13 | ER Report ---
History and Physical Time Seen By MD: 15:13 HPI/ROS CHIEF COMPLAINT: Right leg pain HISTORY OF PRESENT ILLNESS: 47-year-old female patient presents to emergency room with complaint of right leg pain. Patient states that she's been having this pain for the past month. She states that she is not had any recent injury. She states that the pain is significant. She denies any loss of bowel or bladder control, she denies any saddle paresthesia. She states the pain has gotten the point wears going all the way down to her foot and she's concerned about that. She states that she has had an MRI as well as an x-ray done. She was told last night at the [facility] that they didn't find anything wrong with it. She states that she is concerned about the pain. REVIEW OF SYSTEMS: Respiratory: No cough, no dyspnea. Cardiovascular: No chest pain, no palpitations. Gastrointestinal: No vomiting, no abdominal pain. Musculoskeletal: As noted above Allergies: Coded Allergies: Penicillins (Verified Allergy, Intermediate, rash, 02/20/18) cefaclor (Verified Allergy, Intermediate, rash, 02/20/18) sulfamethoxazole (Verified Allergy, Intermediate, rash, 02/20/18) trimethoprim (Verified Allergy, Intermediate, rash, 02/20/18) Home Meds Active Scripts Ketorolac Tromethamine (KETOROLAC TROMETHAMINE) 10 Mg Tab, 10 MG PO Q6H, #20 TAB Prov:HANS SEAMAN [facility] 03/11/18 Ketorolac Tromethamine (KETOROLAC TROMETHAMINE) 10 Mg Tab, 10 MG PO Q6H PRN for PAIN, #12 TAB 0 Refills Prov:NORMA FOREMAN MD 02/20/18 Cyclobenzaprine Hcl (CYCLOBENZAPRINE HCL) 10 Mg Tablet, 10 MG PO Q8H PRN for MUSCLE SPASMS, #20 TAB 0 Refills Prov:NORMA FOREMAN MD 02/20/18 Hydrocodone Bit/Acetaminophen (NORCO 5-325 TABLET) 1 Each Tablet, 1 EACH PO Q4H PRN for PAIN, #10 TAB Prov:CODI JOHNSON DO 01/04/18 Prednisone (PREDNISONE) 20 Mg Tablet, 20 MG PO QDAY for sciatic inflammation, #12 2. By mouth daily 4 days, then one by mouth daily 4 days Prov:CODI JOHNSON DO 01/04/18 Reported Medications Lamotrigine (LAMICTAL) 25 Mg Tablet, 25 MG PO 02/20/18 Lisinopril (LISINOPRIL) 5 Mg Tablet, 5 MG PO QDAY, TAB 08/23/17 Past Medical/Surgical History Patient has a past medical history of hypertension, hyperlipidemia, frequent UTI, back pain, diabetes, hypothyroidism, meth abuse, alcohol use. Patient has surgical history of cholecystectomy, uterine ablation, bilateral trigger thumbs, back surgery. 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 ENT: Tympanic membranes are pearly-walker, auditory canals are patent, mucous membranes are moist. Respiratory: Chest is non tender, lungs are clear to auscultation. Cardiac: regular rate and rhythm Gastrointestinal: Abdomen is soft and non tender, no masses, bowel sounds normal. Musculoskeletal: Neck: Neck is supple and non tender. Extremities have full range of motion and are non tender. Patient has tenderness that starts at the proximal dorsal aspect of the right leg. Skin: No rashes or lesions. DIFFERENTIAL DIAGNOSIS: After history and physical exam differential diagnosis was considered for sciatica, nerve compression, chronic pain. Medical Decision Making ED Course/Re-evaluation ED Course Patient was admitted to exam room, history and physical were obtained. Differential diagnoses were considered. On examination lungs are clear, heart was regular, abdomen was soft nontender. Patient did have some tenderness to the dorsal aspect of the proximal right upper leg. I have reviewed the MRI, the x- rays which were done on 02/20 as well as 02/26. With patient not having any recent injury, not having numbness, tingling, loss of bowel or bladder control. I do not see any use of repeat images. We will go ahead and discharge patient home with a prescription of Toradol. [facility]. She is to limit her activity by pain. She is to return to the emergency room if condition worsens. Patient verbalized understanding and agreement with plan. Decision to Disposition Date: Mar 11, 2018 Decision to Disposition Time: 15:29 Depart Departure Latest Vital Signs Vital Signs Date Time Temp Pulse Resp B/P (MAP) Pulse Ox O2 Delivery O2 Flow Rate FiO2 03/11/18 15:13 98.3 87 20 154/84 96 Room Air Impression: Primary Impression: Right sided sciatica Condition: Condition Unchanged Disposition: HOME OR SELF-CARE New Scripts Ketorolac Tromethamine (KETOROLAC TROMETHAMINE) 10 Mg Tab 10 MG PO Q6H, #20 TAB Prov: HANS SEAMAN 03/11/18 Patient Instructions: Sciatica (ED) Additional Instructions: Limit activity by pain. Continue with the exercises for your back. Follow up with the [facility] next week. This has become more of a chronic pain problem that is not treated here in the ER. Stop taking the Naproxen while you are taking the Toradol. Take the Toradol with food. Return to the ER if condition worsens. HANS SEAMAN Mar 11, 2018 15:13
[2018-03-11] MEDS ORDERED: KET10 PO ×2 (15:27→15:35)
== END 2018-03-11 15:38 | disposition home or self-care (01) ==
LOC: ER 15:15
DX: M54.31 Sciatica, right side (principal)
CPT/HCPCS: 99282